=== PATIENT | male | born 1950 | race Caucasian/White ===

== ENCOUNTER 2022-09-06 10:02 | Outpatient (CLI) | payer MEDICAID ==
[~2022-09-06 10:02] MED LIST: ADV50250 INH; ALBUTEROL IH; CLOP75TA15 PO; LISI10TA27 PO; SPIIN IH
[2022-09-06 10:55] LABS: ALBUMIN 3.1 G/DL (3.4-5.0); ANION GAP 8 (8-16); BLOOD UREA NITROGEN 34 MG/DL (7-18); BUN/CREATININE RATIO 21.7 (5.4-32.0); CHLORIDE 105 MMOL/L (99-107); CREATININE 1.57 MG/DL (0.60-1.10); POTASSIUM 3.6 MMOL/L (3.5-5.1); SODIUM 139 MMOL/L (135-145); TOTAL CARBON DIOXIDE 25.9 MMOL/L (24-32); eGFR 44 ML/MIN
[2022-09-06 11:01] LABS: GLUCOSE 89 MG/DL (70-104)
== END 2022-09-06 23:59 | disposition home or self-care (01) ==
LOC: LAB 10:02
PROVIDERS: ATTEND Nurse Practitioner Family
DX: I65.23 Occlusion and stenosis of bilateral carotid arteries (principal); I10 Essential (primary) hypertension
CPT/HCPCS: 36415; 80048

== ENCOUNTER 2022-10-09 06:24 | Day surgery (SDC) | payer MEDICARE, MEDICAID ==
[2022-10-04 10:24] LABS: BASOPHILS % (AUTO) 0.7 % (0-1); EOSINOPHILS # (AUTO) 0.2 X10'3 (0-0.9); EOSINOPHILS % (AUTO) 3.6 % (0-6); HEMATOCRIT 40.1 % (42.0-52.0); HEMOGLOBIN 13.8 g/dl (14.0-17.9); LYMPHOCYTES # (AUTO) 1.9 X10'3 (1.1-4.8); LYMPHOCYTES % (AUTO) 31.2 % (21-51); MEAN CORPUSCULAR HGB CONC 34.4 g/dL (33.0-36.5); MEAN CORPUSCULAR VOLUME 95.9 FL (78-98); MEAN PLATELET VOLUME 7.7 FL (7.4-10.4); MONOCYTES # (AUTO) 0.7 X10'3 (0-0.9); MONOCYTES % (AUTO) 11.5 % (2-12); NEUTROPHILS # (AUTO) 3.2 X10'3 (1.8-7.7); PLATELET COUNT 168 X10'3 (140-440); RED BLOOD COUNT 4.19 X10'6 (4.70-6.10)
[2022-10-04 10:34] LABS: ANION GAP 6 (8-16); BLOOD UREA NITROGEN 39 MG/DL (7-18); CALCIUM 9.7 MG/DL (8.5-10.1); CHLORIDE 106 MMOL/L (99-107); CHOL/HDL RATIO 4.5 (0.00-4.99); CHOLESTEROL 135 MG/DL (0-200); CREATININE 1.95 MG/DL (0.60-1.10); HDL CHOLESTEROL 30 MG/DL (35-60); LDL CHOLESTEROL 86 MG/DL (50-100); SODIUM 140 MMOL/L (135-145); TOTAL CARBON DIOXIDE 28.4 MMOL/L (24-32); TRIGLYCERIDES 111 MG/DL (20-135); eGFR 34 ML/MIN
[2022-10-04 10:39] LABS: GLUCOSE 92 MG/DL (70-104)
[2022-10-04 11:13] LABS: APTT 28 SECONDS (22-32)
[~2022-10-09] VITALS: Ht 172.7 cm; Wt 61.5 kg
[2022-10-09] VITALS (9 sets, daily range): BP systolic 135–176; BP diastolic 65–91
[2022-10-09] MEDS ORDERED: normal saline 1,000 ML IV SCH (06:40)
[2022-10-09] MEDS ORDERED: LORazepam 0.5 MG tablet PO PRN (06:40)
[2022-10-09] MEDS ORDERED: diphenhydrAMINE 25mg capsule PO PRN (06:40)
[2022-10-09] MEDS ORDERED: ROSU20TA31 PO (07:16)
[2022-10-09] MEDS ORDERED: ASPI81TA52 PO (07:16)
[2022-10-09] MEDS ORDERED: HYDR25TA5 PO (07:16)
[2022-10-09] MEDS ORDERED: BUDE10.2 PO (07:16)
[2022-10-09] MEDS ORDERED: nitroGLYCERIN-Tridil 50MG/D5W 250 ML IV ONE (07:33)
[2022-10-09] MEDS ORDERED: midazolam 1 mg/ML 2ml injection ONE (07:34)
[2022-10-09] MEDS ORDERED: iohexol 350MG/ML 100ml bottle IV ONE ×3 (07:34→09:33)
[2022-10-09] MEDS ORDERED: fentaNYL/PF 50MCG/1 ML 2ML syringe ONE (07:34)
[2022-10-09] MEDS ORDERED: heparin 1,000unit/ml 10ml vial 10 ML ONE (07:34)
[2022-10-09] MEDS ORDERED: verapamil 2.5 mg/ml inj IV ONE (07:34)
[2022-10-09] MEDS ORDERED: LIDOcaine 1% (10mg/ml) 2ml vial ONE (07:34)
[2022-10-09] MEDS ORDERED: clopidogrel 300mg tablet ONE (08:59)
[2022-10-09] MEDS ORDERED: aspirin 325mg tablet ONE (08:59)
[2022-10-09] MEDS ORDERED: HYDROcodone/acetaminophen 10/325mg tab PO PRN (10:40)
[2022-10-09] MEDS ORDERED: HYDROcodone/acetaminophen 5mg/325mg tablet PO PRN (10:40)
== END 2022-10-09 12:45 | disposition home or self-care (01) ==
LOC: SSTAY O 06:24
PROVIDERS: ATTEND Student in an Organized Health Care Education/Training Program
DX: R07.89 Other chest pain (principal); I25.10 Atherosclerotic heart disease of native coronary artery without angina pectoris; I12.9 Hypertensive chronic kidney disease with stage 1 through stage 4 chronic kidney disease, or unspecified chronic kidney disease; N18.30 Chronic kidney disease, stage 3 unspecified; E78.5 Hyperlipidemia, unspecified; F15.90 Other stimulant use, unspecified, uncomplicated; J43.9 Emphysema, unspecified; I65.29 Occlusion and stenosis of unspecified carotid artery; K74.60 Unspecified cirrhosis of liver; B18.2 Chronic viral hepatitis C; Z79.899 Other long term (current) drug therapy; Z79.82 Long term (current) use of aspirin; Z87.891 Personal history of nicotine dependence
CPT/HCPCS: 36415; 80048; 80061; 85025; 85610; 85730; 93005; 93458; 99152; 99153; C1725; C1751; C1769; C1874; C1894; C9600; J1644; J2250; J3010; J3490; J7030; Q0163; Q9967; A6258; A6449; C1761

== ENCOUNTER → 2022-11-07 | Day surgery (SDC) | payer MEDICARE, MEDICAID ==
[~2022-11-07] VITALS: Ht 172.7 cm; Wt 60.4 kg
[~2022-11-07] MED LIST changes: -ADV50250 INH; -ALBUTEROL IH; +ASPI81TA52 PO; +BUDE10.2 PO; -CLOP75TA15 PO; +HYDR25TA5 PO; +ROSU20TA31 PO; +SODIUM BICARB 150mEq/D5W 1L 1,000 ML IV ONE; +iohexol 350MG/ML 100ml bottle IV ONE
[2022-11-07 09:15] VITALS: BP 122/60
[2022-11-07 10:02] LABS: ALANINE AMINOTRANSFERASE 96 U/L (12-78); ALBUMIN 2.8 G/DL (3.4-5.0); ALBUMIN/GLOBULIN RATIO 0.6 (1.1-1.5); ALKALINE PHOSPHATASE 69 IU/L (46-116); ASPARTATE AMINO TRANSFERASE 97 U/L (10-37); BILIRUBIN,TOTAL 1.1 MG/DL (0.1-1.0); CHOL/HDL RATIO 3.9 (0.00-4.99); CHOLESTEROL 106 MG/DL (0-200); HDL CHOLESTEROL 27 MG/DL (35-60); LDL CHOLESTEROL 65 MG/DL (50-100); TOTAL PROTEIN 7.7 G/DL (6.4-8.2); TRIGLYCERIDES 84 MG/DL (20-135)
[2022-11-07 10:07] LABS: BILIRUBIN,DIRECT 0.4 MG/DL (0-0.3)
[2022-11-07 10:40] LABS: ANION GAP 9 (8-16); CHLORIDE 110 MMOL/L (99-107); GLUCOSE 90 MG/DL (70-104); POTASSIUM 3.5 MMOL/L (3.5-5.1); SODIUM 143 MMOL/L (135-145); TOTAL CARBON DIOXIDE 23.7 MMOL/L (24-32)
[2022-11-07 10:41] LABS: BLOOD UREA NITROGEN 30 MG/DL (7-18); BUN/CREATININE RATIO 17.5 (5.4-32.0); CREATININE 1.71 MG/DL (0.60-1.10); eGFR 40 ML/MIN
== END | disposition home or self-care (01) ==
LOC: SSTAY O 08:38
PROVIDERS: ATTEND Internal Medicine Interventional Cardiology
DX: I65.23 Occlusion and stenosis of bilateral carotid arteries (principal); I10 Essential (primary) hypertension; E78.5 Hyperlipidemia, unspecified; F15.10 Other stimulant abuse, uncomplicated; B18.2 Chronic viral hepatitis C; J44.9 Chronic obstructive pulmonary disease, unspecified; Z87.891 Personal history of nicotine dependence; Z79.82 Long term (current) use of aspirin; Z79.899 Other long term (current) drug therapy
CPT/HCPCS: 36415; 70498; 80048; 80061; 80076; J3490; J7030; Q9967

== ENCOUNTER 2024-01-14 10:57 | Outpatient (CLI) | payer MEDICARE, MEDICAID ==
[~2024-01-14 10:57] MED LIST changes: +IODIXANOL 320 MG/ML INFUS..BTL 100ML IV ONE; -ROSU20TA31 PO; +ROSU20TA73 PO; -SODIUM BICARB 150mEq/D5W 1L 1,000 ML IV ONE; -iohexol 350MG/ML 100ml bottle IV ONE
[2024-01-14 11:30] LABS: BASOPHILS # (AUTO) 0.1 X10'3 (0-0.2); BASOPHILS % (AUTO) 1.1 % (0-1); EOSINOPHILS # (AUTO) 0.2 X10'3 (0-0.9); EOSINOPHILS % (AUTO) 2.1 % (0-6); HEMATOCRIT 28.7 % (42.0-52.0); HEMOGLOBIN 8.8 g/dl (14.0-17.9); LYMPHOCYTES # (AUTO) 1.1 X10'3 (1.1-4.8); MEAN CORPUSCULAR HEMOGLOBIN 23.2 PG (27.0-31.0); MEAN CORPUSCULAR HGB CONC 30.5 g/dL (33.0-36.5); MEAN CORPUSCULAR VOLUME 76.1 FL (78-98); MEAN PLATELET VOLUME 7.5 FL (7.4-10.4); NEUTROPHILS # (AUTO) 6.6 X10'3 (1.8-7.7); NEUTROPHILS % (AUTO) 73.8 % (42-75); PLATELET COUNT 279 X10'3 (140-440); RED BLOOD COUNT 3.77 X10'6 (4.70-6.10); RED CELL DISTRIBUTION WIDTH 19.8 % (11.5-14.5); WHITE BLOOD COUNT 8.9 X10'3 (4.5-11.0)
[2024-01-14 11:43] LABS: APTT 26 SECONDS (22-32); INR 1.1 INR; PROTHROMBIN TIME 11.8 SECONDS (9.0-12.0)
[2024-01-14 11:44] LABS: ANION GAP 12 (8-16); BLOOD UREA NITROGEN 16 MG/DL (7-18); BUN/CREATININE RATIO 13.9 (10.0-20.0); CHLORIDE 108 MMOL/L (99-107); CREATININE 1.15 MG/DL (0.60-1.10); GLUCOSE 94 MG/DL (70-104); POTASSIUM 3.6 MMOL/L (3.5-5.1); SODIUM 140 MMOL/L (135-145); TOTAL CARBON DIOXIDE 20.2 MMOL/L (24-32)
[2024-01-14 11:45] LABS: ALANINE AMINOTRANSFERASE 42 U/L (12-78); ALBUMIN 2.8 G/DL (3.4-5.0); ALBUMIN/GLOBULIN RATIO 0.6 (1.1-1.5); ALKALINE PHOSPHATASE 80 IU/L (46-116); ASPARTATE AMINO TRANSFERASE 70 U/L (10-37); CALCIUM 8.6 MG/DL (8.5-10.1); TOTAL PROTEIN 7.6 G/DL (6.4-8.2); eGFR 63 ML/MIN
[2024-01-14 11:52] LABS: PRO BRAIN NATRIURETIC PEPTIDE 1744 PG/ML (0-125)
[2024-01-14 12:06] LABS: ANISOCYTOSIS 2+; BURR CELLS 1+; MICROCYTOSIS 1+; PLATELET ESTIMATE NORMAL; ROULEAUX 1+
[2024-01-14 12:07] LABS: ELLIPTOCYTES FEW; HYPOCHROMASIA 1+; LARGE PLATELETS FEW; SCHISTOCYTES FEW
[2024-01-19] MEDS ORDERED: ATOR80TA PO (11:24)
[2024-01-19] MEDS ORDERED: ZOLP5TAB8 PO (11:25)
[2024-01-19] MEDS ORDERED: METO-395 PO (11:26)
[2024-01-19] MEDS ORDERED: LOSA-415 PO (11:26)
[2024-01-19] MEDS ORDERED: CLOP75TA34 PO (11:27)
[2024-01-19] MEDS ORDERED: TIOT4MIS2 PO (11:29)
[2024-01-19] MEDS ORDERED: ALB0.5UD IH (11:32)
== END 2024-01-14 23:59 | disposition home or self-care (01) ==
LOC: RAD 10:57
PROVIDERS: ATTEND Internal Medicine Cardiovascular Disease
DX: K80.20 Calculus of gallbladder without cholecystitis without obstruction (principal); J90 Pleural effusion, not elsewhere classified; I35.0 Nonrheumatic aortic (valve) stenosis; R06.02 Shortness of breath; I65.29 Occlusion and stenosis of unspecified carotid artery; K76.6 Portal hypertension; I85.00 Esophageal varices without bleeding; K74.60 Unspecified cirrhosis of liver; J43.8 Other emphysema
CPT/HCPCS: 36415; 71046; 71275; 74174; 75572; 80053; 83880; 85008; 85025; 85610; 85730; J3490; Q9967

== ENCOUNTER 2024-01-23 23:38 | Inpatient (IN) | payer MEDICARE, MEDICAID ==
[~2024-01-23] VITALS: Ht 172.7 cm; Wt 58.0 kg
[~2024-01-23 23:38] MED LIST changes: +ALB0.5UD IH; +ATOR80TA PO; +CLOP75TA34 PO; +FURO20TA4 PO; -HYDR25TA5 PO; -IODIXANOL 320 MG/ML INFUS..BTL 100ML IV ONE; -LISI10TA27 PO; +LOSA-415 PO; +METO-395 PO; +PANT40TA54 PO; +POTA-207 PO; -ROSU20TA73 PO; -SPIIN IH; +TIOT4MIS2 PO; +ZOLP5TAB8 PO
[2024-01-24 02:09] LABS: BASOPHILS % (AUTO) 0.7 % (0-1); EOSINOPHILS # (AUTO) 0.1 X10'3 (0-0.9); EOSINOPHILS % (AUTO) 1.3 % (0-6); HEMATOCRIT 25.4 % (42.0-52.0); HEMOGLOBIN 7.9 g/dl (14.0-17.9); LYMPHOCYTES # (AUTO) 0.8 X10'3 (1.1-4.8); LYMPHOCYTES % (AUTO) 11.4 % (21-51); MEAN CORPUSCULAR HEMOGLOBIN 22.5 PG (27.0-31.0); MEAN CORPUSCULAR HGB CONC 31.1 g/dL (33.0-36.5); MEAN CORPUSCULAR VOLUME 72.2 FL (78-98); MEAN PLATELET VOLUME 7.9 FL (7.4-10.4); NEUTROPHILS # (AUTO) 5.2 X10'3 (1.8-7.7); NEUTROPHILS % (AUTO) 72.6 % (42-75); PLATELET COUNT 257 X10'3 (140-440); RED BLOOD COUNT 3.52 X10'6 (4.70-6.10); RED CELL DISTRIBUTION WIDTH 19.9 % (11.5-14.5); WHITE BLOOD COUNT 7.2 X10'3 (4.5-11.0)
[2024-01-24 02:28] LABS: ALANINE AMINOTRANSFERASE 41 U/L (12-78); ALBUMIN 2.8 G/DL (3.4-5.0); ALBUMIN/GLOBULIN RATIO 0.6 (1.1-1.5); ALKALINE PHOSPHATASE 80 IU/L (46-116); ANION GAP 9 (8-16); ASPARTATE AMINO TRANSFERASE 46 U/L (10-37); BILIRUBIN,TOTAL 1.2 MG/DL (0.1-1.0); BLOOD UREA NITROGEN 29 MG/DL (7-18); BUN/CREATININE RATIO 20.3 (10.0-20.0); CALCIUM 8.6 MG/DL (8.5-10.1); CHLORIDE 108 MMOL/L (99-107); CREATININE 1.43 MG/DL (0.60-1.10); GLUCOSE 107 MG/DL (70-104); MAGNESIUM 1.9 MG/DL (1.5-2.4); POTASSIUM 3.7 MMOL/L (3.5-5.1); PRO BRAIN NATRIURETIC PEPTIDE 3269 PG/ML (0-125); SODIUM 139 MMOL/L (135-145); TOTAL CARBON DIOXIDE 22.4 MMOL/L (24-32); TOTAL PROTEIN 7.4 G/DL (6.4-8.2); eCRCL 36 ML/MIN; eGFR 49 ML/MIN
[2024-01-24] MEDS: aspirin 81mg tab.chew PO STA (02:42)
[2024-01-24] MEDS: nitroGLYCERIN 1gm ointment UD TP ONE (02:42)
[2024-01-24] MEDS ORDERED: magnesium hydroxide 30ml (MOM) UD suspension PO PRN (03:20)
[2024-01-24] MEDS ORDERED: mag hydrox/Alum hydrox/simeth 30ml oral suspension PO PRN (03:20)
[2024-01-24] MEDS ORDERED: magnesium 2GM in 50ml NS 50 ML IV PRN (03:20)
[2024-01-24] MEDS ORDERED: HYDROcodone/acetaminophen 5mg/325mg tablet PO PRN (03:20)
[2024-01-24] MEDS ORDERED: acetaminophen 325mg tablet PO PRN (03:20)
[2024-01-24] MEDS ORDERED: magnesium 4gm in 100ml NS 100 ML IV PRN (03:20)
[2024-01-24] MEDS ORDERED: ondansetron 4mg rapidly disintigrating tab PO PRN (03:20)
[2024-01-24] MEDS ORDERED: potassium Cl 20 mEq SR tablet PO PRN (03:20)
[2024-01-24] MEDS ORDERED: morphine 2 MG/ML inj. syringe IV PRN (03:20)
[2024-01-24] MEDS ORDERED: heparin 10,000 units/1 ML INJ IV PRN (03:20)
[2024-01-24] MEDS ORDERED: potassium Cl 40MEQ/1/2NS 520ml 520 ML IV PRN (03:20)
[2024-01-24] MEDS ORDERED: ondansetron/PF 4mg/2ml inj IV PRN (03:20)
[2024-01-24] MEDS ORDERED: magnesium Cl slow-release 64mg tablet PO PRN (03:20)
[2024-01-24 03:32] LABS: APTT 25 SECONDS (22-32); INR 1.2 INR
[2024-01-24 03:47] LABS: ANISOCYTOSIS 2+; ELLIPTOCYTES FEW; MICROCYTOSIS 1+; PLATELET ESTIMATE NORMAL; SCHISTOCYTES FEW
[2024-01-24 03:48] LABS: ACANTHOCYTES FEW; BURR CELLS 1+
[2024-01-24] MEDS: heparin 10,000 units/1 ML INJ IV ONE (04:38)
[2024-01-24] MEDS: MESSAGE TO NURSING IV ONE ×2 (04:39→09:37)
[2024-01-24] MEDS: heparin 25,000 UNIT/250ml bag 250 ML IV PRN (04:41)
[2024-01-24 05:01] LABS: PHOSPHORUS 3.2 MG/DL (2.3-4.5)
[2024-01-24] MEDS: K and/or MAG REPLACEMENT MC SCH (07:17)
[2024-01-24 08:08] LABS: INR 1.2 INR; PROTHROMBIN TIME 12.5 SECONDS (9.0-12.0)
[2024-01-24] MEDS: aspirin 81mg, enteric-coated 1 TAB TABLET.DR PO SCH (08:16)
[2024-01-24] MEDS: docusate sod 100mg capsule PO SCH (08:16)
[2024-01-24] MEDS: atorvastatin 20mg tablet PO SCH (08:16)
[2024-01-24 08:57] LABS: HIV ANTIBODY 1&2 RAPID NON-REACTIVE (Neg)
[2024-01-24] MEDS: ringers solution, lacted 1,000 ML IV ONE (10:39)
[2024-01-24 14:43] LABS: APTT 48 SECONDS (22-32)
[2024-01-24] MEDS ORDERED: FURO-150 PO (17:03)
[2024-01-24] MEDS ORDERED: POTA-208 PO (17:03)
[2024-01-24] MEDS: morphine 2 MG/ML inj. syringe IV PRN (20:24)
[2024-01-24 21:22] VITALS: BP 153/86; PULSE 97; RESP 23; TEMP 97.9; O2SAT 92
[2024-01-24] MEDS: HYDROcodone/acetaminophen 10/325mg tab PO PRN (21:58)
[2024-01-24] MEDS: zolpidem 5mg tablet PO PRN (23:09)
[2024-01-25] VITALS (11 sets, daily range): BP systolic 117–142; BP diastolic 54–68; PULSE 71–90; RESP 15–24; TEMP 97.6–98.8; O2SAT 90–97
[2024-01-25 06:55] LABS: BASOPHILS # (AUTO) 0.1 X10'3 (0-0.2); BASOPHILS % (AUTO) 1.1 % (0-1); EOSINOPHILS # (AUTO) 0.2 X10'3 (0-0.9); EOSINOPHILS % (AUTO) 4.1 % (0-6); HEMATOCRIT 23.9 % (42.0-52.0); HEMOGLOBIN 7.3 g/dl (14.0-17.9); LYMPHOCYTES % (AUTO) 21.5 % (21-51); MEAN CORPUSCULAR HEMOGLOBIN 22.2 PG (27.0-31.0); MEAN CORPUSCULAR HGB CONC 30.7 g/dL (33.0-36.5); MEAN CORPUSCULAR VOLUME 72.3 FL (78-98); MEAN PLATELET VOLUME 7.8 FL (7.4-10.4); MONOCYTES # (AUTO) 0.6 X10'3 (0-0.9); MONOCYTES % (AUTO) 13.7 % (2-12); NEUTROPHILS # (AUTO) 2.8 X10'3 (1.8-7.7); NEUTROPHILS % (AUTO) 59.6 % (42-75); PLATELET COUNT 191 X10'3 (140-440); RED BLOOD COUNT 3.31 X10'6 (4.70-6.10); WHITE BLOOD COUNT 4.7 X10'3 (4.5-11.0)
[2024-01-25 07:09] LABS: ALANINE AMINOTRANSFERASE 33 U/L (12-78); ALBUMIN 2.4 G/DL (3.4-5.0); ALBUMIN/GLOBULIN RATIO 0.6 (1.1-1.5); ALKALINE PHOSPHATASE 49 IU/L (46-116); ANION GAP 8 (8-16); ASPARTATE AMINO TRANSFERASE 36 U/L (10-37); BILIRUBIN,TOTAL 1.1 MG/DL (0.1-1.0); BLOOD UREA NITROGEN 24 MG/DL (7-18); BUN/CREATININE RATIO 20.9 (10.0-20.0); CALCIUM 8.4 MG/DL (8.5-10.1); CHLORIDE 110 MMOL/L (99-107); CHOL/HDL RATIO 3.7 (0.00-4.99); CHOLESTEROL 81 MG/DL (0-200); CREATININE 1.15 MG/DL (0.60-1.10); GLUCOSE 92 MG/DL (70-104); HDL CHOLESTEROL 22 MG/DL (35-60); LDL CHOLESTEROL 54 MG/DL (50-100); POTASSIUM 3.9 MMOL/L (3.5-5.1); SODIUM 141 MMOL/L (135-145); TOTAL CARBON DIOXIDE 23.5 MMOL/L (24-32); TOTAL PROTEIN 6.4 G/DL (6.4-8.2); TRIGLYCERIDES 70 MG/DL (20-135); eCRCL 41 ML/MIN; eGFR 63 ML/MIN
[2024-01-25 07:56] LABS: ANISOCYTOSIS 2+; ELLIPTOCYTES FEW; MICROCYTOSIS 1+; PLATELET ESTIMATE NORMAL; POIKILOCYTOSIS FEW
[2024-01-25] MEDS ORDERED: albuterol 2.5 MG/3 ML nebule NEB PRN (17:40)
[2024-01-25] MEDS: albuterol 2.5 MG/3 ML nebule NEB SCH (19:58)
[2024-01-25] MEDS: budesonide 0.5mg/2ml UD nebule IH SCH (19:59)
[2024-01-25] MEDS: pantoprazole 40mg Tablet.DR PO SCH (20:10)
[2024-01-25] MEDS: zolpidem 5mg tablet PO PRN (21:48)
[2024-01-26] VITALS (16 sets, daily range): BP systolic 117–138; BP diastolic 49–70; PULSE 61–90; RESP 15–24; TEMP 97.3–98.2; O2SAT 90–98
[2024-01-26 06:50] LABS: EOSINOPHILS # (AUTO) 0.1 X10'3 (0-0.9); EOSINOPHILS % (AUTO) 2.7 % (0-6); HEMATOCRIT 27.6 % (42.0-52.0); HEMOGLOBIN 8.8 g/dl (14.0-17.9); LYMPHOCYTES % (AUTO) 20.7 % (21-51); MEAN CORPUSCULAR HEMOGLOBIN 23.8 PG (27.0-31.0); MEAN CORPUSCULAR HGB CONC 31.9 g/dL (33.0-36.5); MEAN CORPUSCULAR VOLUME 74.6 FL (78-98); MONOCYTES # (AUTO) 0.7 X10'3 (0-0.9); MONOCYTES % (AUTO) 13.8 % (2-12); NEUTROPHILS % (AUTO) 61.8 % (42-75); PLATELET COUNT 211 X10'3 (140-440); RED CELL DISTRIBUTION WIDTH 21.7 % (11.5-14.5); WHITE BLOOD COUNT 4.9 X10'3 (4.5-11.0)
[2024-01-26 06:52] LABS: ALANINE AMINOTRANSFERASE 35 U/L (12-78); ALBUMIN 2.4 G/DL (3.4-5.0); ALBUMIN/GLOBULIN RATIO 0.6 (1.1-1.5); ALKALINE PHOSPHATASE 57 IU/L (46-116); ANION GAP 11 (8-16); ASPARTATE AMINO TRANSFERASE 37 U/L (10-37); BILIRUBIN,TOTAL 1.8 MG/DL (0.1-1.0); BLOOD UREA NITROGEN 21 MG/DL (7-18); BUN/CREATININE RATIO 17.5 (10.0-20.0); CALCIUM 7.9 MG/DL (8.5-10.1); CHLORIDE 106 MMOL/L (99-107); GLUCOSE 108 MG/DL (70-104); MAGNESIUM 1.8 MG/DL (1.5-2.4); PHOSPHORUS 2.8 MG/DL (2.3-4.5); POTASSIUM 3.4 MMOL/L (3.5-5.1); SODIUM 136 MMOL/L (135-145); TOTAL CARBON DIOXIDE 18.9 MMOL/L (24-32); TOTAL PROTEIN 6.6 G/DL (6.4-8.2); eCRCL 39 ML/MIN; eGFR 60 ML/MIN
[2024-01-26] MEDS: aspirin 81mg, enteric-coated 1 TAB TABLET.DR PO SCH (08:00)
[2024-01-26] MEDS ORDERED: non-formulary drug (Atorvastatin Calcium* (Lipitor*) 1 TAB) PO SCH (08:00)
[2024-01-26 08:46] LABS: ACANTHOCYTES FEW; ANISOCYTOSIS 3+; BURR CELLS FEW; ELLIPTOCYTES 1+; HYPOCHROMASIA 1+; LARGE PLATELETS FEW; MICROCYTOSIS 1+; PLATELET ESTIMATE NORMAL; TEAR DROP CELLS FEW
[2024-01-26 08:47] LABS: SCHISTOCYTES FEW
[2024-01-26] MEDS: potassium Cl 20 mEq SR tablet PO PRN (08:48)
[2024-01-26] MEDS: metoprolol succinate 25mg (24-HOUR) SR. Tablet PO SCH (08:49)
[2024-01-26] MEDS: losartan 25mg tablet PO SCH (08:50)
[2024-01-26] MEDS: lactose-reduced food (Ensure Enlive) - 237ml bottle PO SCH (18:00)
[2024-01-27] VITALS (14 sets, daily range): BP systolic 98–131; BP diastolic 51–81; PULSE 67–86; RESP 12–22; TEMP 96.8–98.1; O2SAT 92–97
[2024-01-27 06:35] LABS: BASOPHILS % (AUTO) 0.8 % (0-1); EOSINOPHILS # (AUTO) 0.1 X10'3 (0-0.9); EOSINOPHILS % (AUTO) 1.9 % (0-6); HEMOGLOBIN 8.4 g/dl (14.0-17.9); LYMPHOCYTES # (AUTO) 0.9 X10'3 (1.1-4.8); LYMPHOCYTES % (AUTO) 18.1 % (21-51); MEAN CORPUSCULAR HGB CONC 32.3 g/dL (33.0-36.5); MEAN CORPUSCULAR VOLUME 74.5 FL (78-98); MONOCYTES # (AUTO) 0.7 X10'3 (0-0.9); MONOCYTES % (AUTO) 13.8 % (2-12); NEUTROPHILS # (AUTO) 3.4 X10'3 (1.8-7.7); NEUTROPHILS % (AUTO) 65.4 % (42-75); PLATELET COUNT 188 X10'3 (140-440); RED BLOOD COUNT 3.49 X10'6 (4.70-6.10); RED CELL DISTRIBUTION WIDTH 21.7 % (11.5-14.5); WHITE BLOOD COUNT 5.2 X10'3 (4.5-11.0)
[2024-01-27 06:40] LABS: ALANINE AMINOTRANSFERASE 28 U/L (12-78); ALBUMIN 2.2 G/DL (3.4-5.0); ALBUMIN/GLOBULIN RATIO 0.6 (1.1-1.5); ALKALINE PHOSPHATASE 53 IU/L (46-116); ANION GAP 11 (8-16); ASPARTATE AMINO TRANSFERASE 25 U/L (10-37); BLOOD UREA NITROGEN 18 MG/DL (7-18); BUN/CREATININE RATIO 15.7 (10.0-20.0); CHLORIDE 107 MMOL/L (99-107); CREATININE 1.15 MG/DL (0.60-1.10); GLUCOSE 102 MG/DL (70-104); POTASSIUM 4.4 MMOL/L (3.5-5.1); SODIUM 137 MMOL/L (135-145); TOTAL CARBON DIOXIDE 18.8 MMOL/L (24-32); TOTAL PROTEIN 6.2 G/DL (6.4-8.2); eCRCL 47 ML/MIN; eGFR 63 ML/MIN
[2024-01-28] VITALS (12 sets, daily range): BP systolic 105–135; BP diastolic 48–78; PULSE 67–80; RESP 13–22; TEMP 97.1–98.4; O2SAT 94–99
[2024-01-28 07:08] LABS: BASOPHILS % (AUTO) 0.8 % (0-1); EOSINOPHILS # (AUTO) 0.2 X10'3 (0-0.9); EOSINOPHILS % (AUTO) 2.9 % (0-6); HEMATOCRIT 29.2 % (42.0-52.0); HEMOGLOBIN 9.3 g/dl (14.0-17.9); LYMPHOCYTES # (AUTO) 1.2 X10'3 (1.1-4.8); LYMPHOCYTES % (AUTO) 18.6 % (21-51); MEAN CORPUSCULAR HEMOGLOBIN 23.7 PG (27.0-31.0); MEAN CORPUSCULAR HGB CONC 31.7 g/dL (33.0-36.5); MEAN CORPUSCULAR VOLUME 74.6 FL (78-98); MEAN PLATELET VOLUME 7.9 FL (7.4-10.4); MONOCYTES # (AUTO) 0.9 X10'3 (0-0.9); MONOCYTES % (AUTO) 13.7 % (2-12); NEUTROPHILS # (AUTO) 4.1 X10'3 (1.8-7.7); PLATELET COUNT 226 X10'3 (140-440); RED BLOOD COUNT 3.91 X10'6 (4.70-6.10); WHITE BLOOD COUNT 6.4 X10'3 (4.5-11.0)
[2024-01-28 07:15] LABS: ALANINE AMINOTRANSFERASE 25 U/L (12-78); ALBUMIN 2.4 G/DL (3.4-5.0); ALBUMIN/GLOBULIN RATIO 0.6 (1.1-1.5); ALKALINE PHOSPHATASE 54 IU/L (46-116); ANION GAP 5 (8-16); ASPARTATE AMINO TRANSFERASE 34 U/L (10-37); BILIRUBIN,TOTAL 1.2 MG/DL (0.1-1.0); BLOOD UREA NITROGEN 16 MG/DL (7-18); BUN/CREATININE RATIO 14.2 (10.0-20.0); CALCIUM 8.2 MG/DL (8.5-10.1); CHLORIDE 109 MMOL/L (99-107); CREATININE 1.13 MG/DL (0.60-1.10); GLUCOSE 101 MG/DL (70-104); MAGNESIUM 1.8 MG/DL (1.5-2.4); PHOSPHORUS 3.4 MG/DL (2.3-4.5); POTASSIUM 4.3 MMOL/L (3.5-5.1); SODIUM 137 MMOL/L (135-145); TOTAL PROTEIN 6.7 G/DL (6.4-8.2); eCRCL 48 ML/MIN; eGFR 64 ML/MIN
[2024-01-29] VITALS (12 sets, daily range): BP systolic 103–135; BP diastolic 50–62; PULSE 72–87; RESP 14–23; TEMP 98.1–100.3; O2SAT 88–99
[2024-01-29 06:48] LABS: MEAN CORPUSCULAR HEMOGLOBIN 23.7 PG (27.0-31.0); RED CELL DISTRIBUTION WIDTH 22.9 % (11.5-14.5)
[2024-01-29 06:51] LABS: BASOPHILS % (AUTO) 0.5 % (0-1); EOSINOPHILS # (AUTO) 0.1 X10'3 (0-0.9); HEMATOCRIT 27.4 % (42.0-52.0); HEMOGLOBIN 8.7 g/dl (14.0-17.9); LYMPHOCYTES # (AUTO) 0.7 X10'3 (1.1-4.8); LYMPHOCYTES % (AUTO) 10.9 % (21-51); MEAN CORPUSCULAR HGB CONC 31.8 g/dL (33.0-36.5); MEAN CORPUSCULAR VOLUME 74.6 FL (78-98); MEAN PLATELET VOLUME 7.8 FL (7.4-10.4); MONOCYTES # (AUTO) 0.7 X10'3 (0-0.9); MONOCYTES % (AUTO) 10.2 % (2-12); NEUTROPHILS # (AUTO) 5.2 X10'3 (1.8-7.7); NEUTROPHILS % (AUTO) 76.4 % (42-75); PLATELET COUNT 210 X10'3 (140-440); RED BLOOD COUNT 3.68 X10'6 (4.70-6.10); WHITE BLOOD COUNT 6.9 X10'3 (4.5-11.0)
[2024-01-29 06:53] LABS: ALANINE AMINOTRANSFERASE 25 U/L (12-78); ALBUMIN 2.2 G/DL (3.4-5.0); ALBUMIN/GLOBULIN RATIO 0.6 (1.1-1.5); ALKALINE PHOSPHATASE 54 IU/L (46-116); ANION GAP 6 (8-16); ASPARTATE AMINO TRANSFERASE 27 U/L (10-37); BILIRUBIN,TOTAL 0.9 MG/DL (0.1-1.0); BLOOD UREA NITROGEN 19 MG/DL (7-18); BUN/CREATININE RATIO 18.4 (10.0-20.0); CALCIUM 8.1 MG/DL (8.5-10.1); CHLORIDE 108 MMOL/L (99-107); CREATININE 1.03 MG/DL (0.60-1.10); GLUCOSE 96 MG/DL (70-104); MAGNESIUM 1.8 MG/DL (1.5-2.4); PHOSPHORUS 3.5 MG/DL (2.3-4.5); POTASSIUM 4.4 MMOL/L (3.5-5.1); SODIUM 136 MMOL/L (135-145); TOTAL CARBON DIOXIDE 22.4 MMOL/L (24-32); TOTAL PROTEIN 6.1 G/DL (6.4-8.2); eCRCL 53 ML/MIN; eGFR 71 ML/MIN
[2024-01-29] MEDS: furosemide 20 MG/2 ML vial IV SCH (10:37)
[2024-01-29] MEDS: acetaminophen 325mg tablet PO PRN (17:49)
[2024-01-29] MEDS: ferrous sulfate ER tablet 140 MG TABLET.ER PO SCH (19:30)
[2024-01-30 02:00] VITALS: BP 114/52; PULSE 77; RESP 15; TEMP 98.5; O2SAT 92
[2024-01-30] MEDS ORDERED: FURO40TA4 PO (06:37)
[2024-01-30 08:00] VITALS: RESP 18; O2SAT 99
[2024-01-30 08:25] VITALS: BP_SYST 107
[2024-01-30] MEDS ORDERED: FERROUS SULFATE 142 MG TABLET.ER (45mg elemental) PO SCH (09:47)
[2024-01-30 10:52] VITALS: PULSE 73; RESP 14; O2SAT 90
[2024-01-30 11:02] VITALS: PULSE 77; RESP 14
[2024-01-30] MEDS ORDERED: FERR-119 PO (11:39)
== END 2024-01-30 11:50 | disposition home or self-care (01) | DRG 280 ==
LOC: ER 23:39 → ED HOLD 01-24 03:21 → EDBEDREQ 01-24 20:36 → PCU 3S 01-24 21:22
PROVIDERS: ADMIT Internal Medicine Pulmonary Disease; ATTEND Family Medicine
PROC: 30233N1 Transfusion of Nonautologous Red Blood Cells into Peripheral Vein, Percutaneous Approach (ICD-10-PCS; principal; 2024-01-25)
DX: I11.0 Hypertensive heart disease with heart failure (principal); E43 Unspecified severe protein-calorie malnutrition; I21.A1 Myocardial infarction type 2; I50.33 Acute on chronic diastolic (congestive) heart failure; N17.9 Acute kidney failure, unspecified; Z68.1 Body mass index [BMI] 19.9 or less, adult; E87.20 Acidosis, unspecified; D64.9 Anemia, unspecified; K70.30 Alcoholic cirrhosis of liver without ascites; I35.0 Nonrheumatic aortic (valve) stenosis; I25.10 Atherosclerotic heart disease of native coronary artery without angina pectoris; I73.9 Peripheral vascular disease, unspecified; F10.10 Alcohol abuse, uncomplicated; J43.9 Emphysema, unspecified; K72.10 Chronic hepatic failure without coma; E87.6 Hypokalemia; I27.29 Other secondary pulmonary hypertension; E78.5 Hyperlipidemia, unspecified; E86.1 Hypovolemia; I95.9 Hypotension, unspecified; I27.81 Cor pulmonale (chronic); Z79.82 Long term (current) use of aspirin; I25.2 Old myocardial infarction; Z79.899 Other long term (current) drug therapy; Z87.891 Personal history of nicotine dependence; Z95.5 Presence of coronary angioplasty implant and graft
CPT/HCPCS: 36415; 36430; 71045; 80053; 80061; 83735; 83880; 84100; 84484; 85008; 85025; 85610; 85730; 86703; 86885; 86900; 86901; 86922; 87081; 93005; 94640; 94760; 97110; 97161; 97530; 99291; A4615; G0378; J1644; J1940; J2270; J7040; J7120; P9016

== ENCOUNTER 2024-02-14 07:54 | Inpatient (IN) | payer MEDICARE, MEDICAID ==
[2024-02-04 11:28] LABS: BASOPHILS # (AUTO) 0.1 X10'3 (0-0.2); BASOPHILS % (AUTO) 0.9 % (0-1); EOSINOPHILS # (AUTO) 0.1 X10'3 (0-0.9); EOSINOPHILS % (AUTO) 1.8 % (0-6); HEMATOCRIT 32.2 % (42.0-52.0); LYMPHOCYTES % (AUTO) 14.3 % (21-51); MEAN CORPUSCULAR HEMOGLOBIN 23.6 PG (27.0-31.0); MEAN CORPUSCULAR HGB CONC 31.2 g/dL (33.0-36.5); MEAN CORPUSCULAR VOLUME 75.8 FL (78-98); MEAN PLATELET VOLUME 7.6 FL (7.4-10.4); MONOCYTES # (AUTO) 0.9 X10'3 (0-0.9); MONOCYTES % (AUTO) 12.4 % (2-12); NEUTROPHILS # (AUTO) 5.1 X10'3 (1.8-7.7); NEUTROPHILS % (AUTO) 70.6 % (42-75); PLATELET COUNT 240 X10'3 (140-440); RED BLOOD COUNT 4.25 X10'6 (4.70-6.10); RED CELL DISTRIBUTION WIDTH 24.7 % (11.5-14.5); WHITE BLOOD COUNT 7.2 X10'3 (4.5-11.0)
[2024-02-04 11:42] LABS: ANISOCYTOSIS 3+; BURR CELLS FEW; ELLIPTOCYTES FEW; MICROCYTOSIS 1+; PLATELET ESTIMATE NORMAL; SCHISTOCYTES FEW; TEAR DROP CELLS FEW
[2024-02-04 11:43] LABS: HYPOCHROMASIA 1+
[2024-02-04 11:46] LABS: ALANINE AMINOTRANSFERASE 27 U/L (12-78); ALBUMIN 2.8 G/DL (3.4-5.0); ALBUMIN/GLOBULIN RATIO 0.6 (1.1-1.5); ALKALINE PHOSPHATASE 59 IU/L (46-116); ANION GAP 9 (8-16); ASPARTATE AMINO TRANSFERASE 34 U/L (10-37); BILIRUBIN,TOTAL 0.9 MG/DL (0.1-1.0); BLOOD UREA NITROGEN 18 MG/DL (7-18); BUN/CREATININE RATIO 15.8 (10.0-20.0); CALCIUM 8.2 MG/DL (8.5-10.1); CHLORIDE 105 MMOL/L (99-107); CREATININE 1.14 MG/DL (0.60-1.10); GLUCOSE 97 MG/DL (70-104); POTASSIUM 3.2 MMOL/L (3.5-5.1); SODIUM 138 MMOL/L (135-145); TOTAL CARBON DIOXIDE 23.7 MMOL/L (24-32); TOTAL PROTEIN 7.6 G/DL (6.4-8.2); eGFR 63 ML/MIN
[2024-02-12 15:27] LABS: BILIRUBIN,URINE NEGATIVE (Neg); CLARITY,URINE CLEAR (Clear); COLOR,URINE STRAW (Yellow); GLUCOSE, URINE NEGATIVE (Neg); KETONES,URINE NEGATIVE (Neg); LEUKOCYTE ESTERASE ,URINE NEGATIVE (Neg); NITRITES, URINE NEGATIVE (Neg); OCCULT BLOOD,URINE NEGATIVE (Neg); PROTEIN,URINE NEGATIVE (Neg); UROBILINOGEN,URINE 0.2 E.U/dL (0.2-1.0)
[2024-02-12 15:28] LABS: UA COLLECTION TYPE CLN CATCH MIDSTREAM
[2024-02-12 15:39] LABS: BASOPHILS # (AUTO) 0.1 X10'3 (0-0.2); BASOPHILS % (AUTO) 0.8 % (0-1); EOSINOPHILS # (AUTO) 0.1 X10'3 (0-0.9); EOSINOPHILS % (AUTO) 1.5 % (0-6); LYMPHOCYTES # (AUTO) 1.2 X10'3 (1.1-4.8); LYMPHOCYTES % (AUTO) 13.7 % (21-51); MEAN CORPUSCULAR HEMOGLOBIN 23.7 PG (27.0-31.0); MEAN CORPUSCULAR HGB CONC 30.5 g/dL (33.0-36.5); MEAN CORPUSCULAR VOLUME 77.8 FL (78-98); MEAN PLATELET VOLUME 7.5 FL (7.4-10.4); MONOCYTES # (AUTO) 1.2 X10'3 (0-0.9); MONOCYTES % (AUTO) 13.3 % (2-12); NEUTROPHILS # (AUTO) 6.3 X10'3 (1.8-7.7); NEUTROPHILS % (AUTO) 70.7 % (42-75); PRE OP HEMATOCRIT 34.7 % (42.0-52.0); PRE OP INR 1.1 INR; PRE OP PLATELET COUNT 315 X10'3 (140-440); PRE OP PROTIME 11.9 SECONDS (9.0-12.0); PRE OP WHITE BLOOD COUNT 8.9 10'3 (4.8-10.8); RED BLOOD COUNT 4.46 X10'6 (4.70-6.10)
[2024-02-12 15:41] LABS: PRE OP HEMOGLOBIN 10.6 g/dL (14.0-17.9)
[2024-02-12 15:48] LABS: ALBUMIN 2.9 G/DL (3.4-5.0); ALBUMIN/GLOBULIN RATIO 0.6 (1.1-1.5); ALKALINE PHOSPHATASE 68 IU/L (46-116); BLOOD UREA NITROGEN 28 MG/DL (7-18); BUN/CREATININE RATIO 24.8 (10.0-20.0); CALCIUM 8.7 MG/DL (8.5-10.1); CHLORIDE 106 MMOL/L (99-107); CREATININE 1.13 MG/DL (0.60-1.10); PRE OP ALT 24 U/L (30-65); PRE OP ANION GAP 13 (8-16); PRE OP AST 34 U/L (10-37); PRE OP BILIRUB, TOTAL 0.9 MG/DL (0.0-1.0); PRE OP GLUCOSE 81 MG/DL (70-104); PRE OP POTASSIUM 3.9 MMOL/L (3.4-5.1); PRE OP SODIUM 139 MMOL/L (135-145); PRO BRAIN NATRIURETIC PEPTIDE 2655 PG/ML (0-125); TOTAL PROTEIN 8.1 G/DL (6.4-8.2); eGFR 64 ML/MIN
[2024-02-12 17:52] LABS: ANISOCYTOSIS 3+; ELLIPTOCYTES FEW; MICROCYTOSIS 1+; PLATELET ESTIMATE NORMAL
[2024-02-12 17:53] LABS: POLYCHROMASIA FEW
[2024-02-12 17:54] LABS: BURR CELLS 1+
[~2024-02-14] VITALS: Ht 172.7 cm; Wt 55.8 kg
[2024-02-14] VITALS (32 sets, daily range): BP systolic 125–171; BP diastolic 56–81; PULSE 65–96; RESP 12–21; TEMP 97.7–98.2; O2SAT 90–99
[~2024-02-14 07:54] MED LIST changes: -CLOP75TA34 PO; +FURO-149 PO; -FURO20TA4 PO; +IRON PO; -PANT40TA54 PO; +nitroPRUSSIDE (NIPRIDE) (200MCG/ML) 100ML Drip IV SCH; +ondansetron/PF 4mg/2ml inj IV PRN; +phenylephrine inj 50 MG in normal saline 250ml IV solN IV SCH
[2024-02-14] MEDS: ipratropium/albuterol 3ml nebule NEB ONE (08:42)
[2024-02-14] MEDS: aspirin 325mg tablet PO ONE (09:17)
[2024-02-14] MEDS: famotidine 20mg tablet PO ONE (09:17)
[2024-02-14] MEDS: ringers solution, lacted 1,000 ML IV SCH (09:19)
[2024-02-14] MEDS: cefazolin 2gm/D5W 100mL 100 ML IV ONE (09:19)
[2024-02-14] MEDS: vancomycin/NS 1 GM in NS 250 ML IV ONE (09:19)
[2024-02-14] MEDS ORDERED: LIDOcaine 1% (10mg/ml) 2ml vial ONE (09:45)
[2024-02-14] MEDS ORDERED: albuterol 2.5 MG/3 ML nebule NEB PRN (09:55)
[2024-02-14] MEDS ORDERED: iohexol 350MG/ML 100ml bottle IV ONE (09:56)
[2024-02-14] MEDS ORDERED: heparin 1,000 UNITS/NS 500ml 1,500 ML ONE (09:56)
[2024-02-14] MEDS ORDERED: LIDOcaine 1% 30ml preserv. free vial ONE (10:11)
[2024-02-14] MEDS ORDERED: midazolam 1 mg/ML 2ml injection ONE (10:18)
[2024-02-14] MEDS ORDERED: fentaNYL/PF 50MCG/1 ML 2ML syringe ONE (10:18)
[2024-02-14] MEDS: protamine sulfate 10mg/ml inj. ONE (10:26)
[2024-02-14] MEDS ORDERED: heparin 1,000unit/ml 10ml vial 10 ML ONE (10:28)
[2024-02-14] MEDS ORDERED: MIDAZolam 1 MG/ML 5ML VIAL ONE (10:32)
[2024-02-14] MEDS ORDERED: potassium Cl 40MEQ/270ML bag 250 ML IV PRN (11:10)
[2024-02-14] MEDS ORDERED: magnesium 4gm in 100ml NS 100 ML IV PRN (11:10)
[2024-02-14] MEDS ORDERED: diphenhydrAMINE 25mg capsule PO PRN (11:10)
[2024-02-14] MEDS ORDERED: acetaminophen 325mg tablet PO PRN (11:10)
[2024-02-14] MEDS ORDERED: ALPRAZolam 0.25mg tablet PO PRN (11:10)
[2024-02-14] MEDS ORDERED: docusate sod 100mg capsule PO PRN (11:10)
[2024-02-14] MEDS ORDERED: potassium Cl 20 mEq SR tablet PO PRN (11:10)
[2024-02-14] MEDS ORDERED: ondansetron/PF 4mg/2ml inj IV PRN (11:10)
[2024-02-14] MEDS ORDERED: pantoprazole 40mg Tablet.DR PO PRN (11:10)
[2024-02-14] MEDS ORDERED: magnesium 2GM in 50ml NS 50 ML IV PRN (11:10)
[2024-02-14] MEDS ORDERED: proCHLORperazine 10 MG/2 ml inj IV PRN (11:10)
[2024-02-14] MEDS ORDERED: potassium Cl 20mEq/100mL bag 100 ML IV PRN (11:10)
[2024-02-14] MEDS ORDERED: potassium Cl 40MEQ/1/2NS 520ml 520 ML IV PRN (11:10)
[2024-02-14] MEDS ORDERED: potassium CL 10mEq/100ml bag 100 ML IV PRN (11:10)
[2024-02-14] MEDS: labetalol 20mg/4ml (5mg/ml) syringe IV PRN (11:44)
[2024-02-14] MEDS: normal saline 1000ml 1,000 ML IV SCH (11:47)
[2024-02-14] MEDS: ipratropium/albuterol 3ml nebule IH SCH (16:37)
[2024-02-14] MEDS: ceFAZolin 1GM/D5W- ADD-VANTAGE 50 ML IV SCH (16:45)
[2024-02-14] MEDS: sod chloride 0.9% 10ml flush syringe IV SCH (16:46)
[2024-02-14] MEDS: HYDROcodone/acetaminophen 5mg/325mg tablet PO PRN (18:14)
[2024-02-14] MEDS: hydrALAZINE 20mg/ml inj. IV PRN (19:43)
[2024-02-14] MEDS: vancomycin/NS 1 GM ADD-VANTAGE 250 ML IV SCH (20:00)
[2024-02-14] MEDS: budesonide 0.5mg/2ml UD nebule IH SCH (20:38)
[2024-02-14] MEDS: zolpidem 5mg tablet PO SCH (21:39)
[2024-02-15] MEDS: hydrALAZINE 20mg/ml inj. IV ONE (01:18)
[2024-02-15] MEDS: DOCUMENT DATE & TIME OF BETA-BLOCKER PO ONE (01:57)
[2024-02-15 01:58] VITALS: BP 157/71; PULSE 75; RESP 22; TEMP 97.7; O2SAT 91
[2024-02-15 05:57] LABS: BASOPHILS % (AUTO) 0.8 % (0-1); EOSINOPHILS # (AUTO) 0.2 X10'3 (0-0.9); EOSINOPHILS % (AUTO) 2.8 % (0-6); HEMATOCRIT 31.5 % (42.0-52.0); HEMOGLOBIN 10.1 g/dl (14.0-17.9); LYMPHOCYTES # (AUTO) 0.9 X10'3 (1.1-4.8); LYMPHOCYTES % (AUTO) 15.6 % (21-51); MEAN CORPUSCULAR HEMOGLOBIN 24.2 PG (27.0-31.0); MEAN CORPUSCULAR HGB CONC 32.1 g/dL (33.0-36.5); MEAN CORPUSCULAR VOLUME 75.3 FL (78-98); MEAN PLATELET VOLUME 7.5 FL (7.4-10.4); MONOCYTES # (AUTO) 0.8 X10'3 (0-0.9); MONOCYTES % (AUTO) 13.4 % (2-12); NEUTROPHILS % (AUTO) 67.4 % (42-75); PLATELET COUNT 228 X10'3 (140-440); RED BLOOD COUNT 4.18 X10'6 (4.70-6.10); RED CELL DISTRIBUTION WIDTH 25.7 % (11.5-14.5)
[2024-02-15 06:00] VITALS: BP 125/50; PULSE 67; RESP 16; TEMP 97.9; O2SAT 96
[2024-02-15 06:29] LABS: ALANINE AMINOTRANSFERASE 26 U/L (12-78); ALBUMIN 2.4 G/DL (3.4-5.0); ALBUMIN/GLOBULIN RATIO 0.5 (1.1-1.5); ALKALINE PHOSPHATASE 51 IU/L (46-116); ANION GAP 11 (8-16); ASPARTATE AMINO TRANSFERASE 53 U/L (10-37); BLOOD UREA NITROGEN 19 MG/DL (7-18); BUN/CREATININE RATIO 20.2 (10.0-20.0); CALCIUM 8.1 MG/DL (8.5-10.1); CHLORIDE 109 MMOL/L (99-107); CREATININE 0.94 MG/DL (0.60-1.10); GLUCOSE 87 MG/DL (70-104); MAGNESIUM 1.8 MG/DL (1.5-2.4); POTASSIUM 3.8 MMOL/L (3.5-5.1); PRO BRAIN NATRIURETIC PEPTIDE 2084 PG/ML (0-125); SODIUM 139 MMOL/L (135-145); TOTAL CARBON DIOXIDE 19.3 MMOL/L (24-32); TOTAL PROTEIN 6.9 G/DL (6.4-8.2); eCRCL 56 ML/MIN; eGFR 79 ML/MIN
[2024-02-15 06:41] LABS: ANISOCYTOSIS 3+; ELLIPTOCYTES 1+; MICROCYTOSIS 1+; PLATELET ESTIMATE NORMAL; SCHISTOCYTES 1+
[2024-02-15] MEDS: metoprolol succinate 25mg (24-HOUR) SR. Tablet PO SCH (07:37)
[2024-02-15] MEDS: atorvastatin 20mg tablet PO SCH (07:37)
[2024-02-15] MEDS: losartan 25mg tablet PO SCH (07:38)
[2024-02-15] MEDS: furosemide 40mg tablet PO SCH (07:38)
[2024-02-15 08:00] VITALS: RESP 16; O2SAT 98
[2024-02-15] MEDS ORDERED: aspirin 81mg, enteric-coated 1 TAB TABLET.DR PO SCH (08:00)
[2024-02-15] MEDS ORDERED: aspirin 81mg tab.chew PO SCH (08:30)
[2024-02-15 09:49] VITALS: PULSE 63; RESP 16; O2SAT 94
[2024-02-15 09:55] VITALS: PULSE 64; RESP 18
[2024-02-15 11:00] VITALS: BP 144/80; PULSE 64; RESP 18; TEMP 98; O2SAT 96
== END 2024-02-15 11:36 | disposition home or self-care (01) | DRG 266 ==
LOC: PAS IN 07:54 → EDSTATUS 10:00 → PCU 3S 13:45
PROVIDERS: ADMIT Student in an Organized Health Care Education/Training Program; ATTEND Student in an Organized Health Care Education/Training Program
PROC: 03HY32Z Insertion of Monitoring Device into Upper Artery, Percutaneous Approach (ICD-10-PCS; 2024-02-14)
PROC: B41D1ZZ Fluoroscopy of Aorta and Bilateral Lower Extremity Arteries using Low Osmolar Contrast (ICD-10-PCS; 2024-02-14)
PROC: 02RF38Z Replacement of Aortic Valve with Zooplastic Tissue, Percutaneous Approach (ICD-10-PCS; principal; 2024-02-14 10:10)
DX: I35.0 Nonrheumatic aortic (valve) stenosis (principal); Z00.6 Encounter for examination for normal comparison and control in clinical research program; I50.33 Acute on chronic diastolic (congestive) heart failure; I11.0 Hypertensive heart disease with heart failure; E78.5 Hyperlipidemia, unspecified; K74.60 Unspecified cirrhosis of liver; J44.9 Chronic obstructive pulmonary disease, unspecified; I27.20 Pulmonary hypertension, unspecified
CPT/HCPCS: 33361; 36415; 71045; 76937; 80053; 81003; 82948; 83735; 83880; 85008; 85025; 85347; 85610; 85730; 86885; 86900; 86901; 86920; 86922; 87081; 93005; 93308; 94640; 94760; A4618; A6258; A6449; C1756; C1760; C1769; C1894; G0378; J0360; J0690; J1644; J2250; J2371; J2720; J3010; J3370; J3490; J7030; J7040; J7050; J7120; Q9967

== ENCOUNTER 2024-12-11 08:56 | Outpatient (CLI) | payer MEDICARE, MEDICAID ==
[~2024-12-11 08:56] MED LIST changes: +ATOR-429 PO; -ATOR80TA PO; +iohexol 300mg/ml 100ml inj. ONE; -nitroPRUSSIDE (NIPRIDE) (200MCG/ML) 100ML Drip IV SCH; -ondansetron/PF 4mg/2ml inj IV PRN; -phenylephrine inj 50 MG in normal saline 250ml IV solN IV SCH
[2024-12-11 09:33] LABS: ALANINE AMINOTRANSFERASE 31 U/L (12-78); ALBUMIN 3.2 G/DL (3.4-5.0); ALBUMIN/GLOBULIN RATIO 0.8 (1.1-1.5); ALKALINE PHOSPHATASE 96 IU/L (46-116); ANION GAP 7 (8-16); ASPARTATE AMINO TRANSFERASE 28 U/L (10-37); BILIRUBIN,TOTAL 1.2 MG/DL (0.1-1.0); BLOOD UREA NITROGEN 13 MG/DL (7-18); BUN/CREATININE RATIO 12.6 (10.0-20.0); CALCIUM 8.5 MG/DL (8.5-10.1); CHLORIDE 110 MMOL/L (99-107); CREATININE 1.03 MG/DL (0.60-1.10); GLUCOSE 91 MG/DL (70-104); POTASSIUM 3.6 MMOL/L (3.5-5.1); SODIUM 142 MMOL/L (135-145); TOTAL CARBON DIOXIDE 25.3 MMOL/L (24-32); TOTAL PROTEIN 7.1 G/DL (6.4-8.2); eGFR 71 ML/MIN
== END 2024-12-11 23:59 | disposition home or self-care (01) ==
LOC: RAD 08:56
PROVIDERS: ATTEND Nurse Practitioner
DX: J43.9 Emphysema, unspecified (principal); I51.7 Cardiomegaly; I25.10 Atherosclerotic heart disease of native coronary artery without angina pectoris; I70.0 Atherosclerosis of aorta; K44.9 Diaphragmatic hernia without obstruction or gangrene; K80.20 Calculus of gallbladder without cholecystitis without obstruction; K74.60 Unspecified cirrhosis of liver
CPT/HCPCS: 36415; 71270; 80053; Q9967

== ENCOUNTER 2024-12-14 14:24 | Emergency (ER) | payer MEDICARE, MEDICAID ==
[~2024-12-14] VITALS: Ht 172.7 cm; Wt 60.9 kg
[~2024-12-14 14:24] MED LIST changes: -iohexol 300mg/ml 100ml inj. ONE
[2024-12-14 14:31] VITALS: TEMP 99.3
[2024-12-14 15:09] LABS: BASOPHILS # (AUTO) 0.1 X10'3 (0-0.2); BASOPHILS % (AUTO) 0.7 % (0-1); EOSINOPHILS # (AUTO) 0.1 X10'3 (0-0.9); EOSINOPHILS % (AUTO) 1.1 % (0-6); HEMATOCRIT 39.7 % (42.0-52.0); HEMOGLOBIN 13.5 g/dl (14.0-17.9); LYMPHOCYTES # (AUTO) 0.9 X10'3 (1.1-4.8); LYMPHOCYTES % (AUTO) 12.4 % (21-51); MEAN CORPUSCULAR HEMOGLOBIN 32.8 PG (27.0-31.0); MEAN CORPUSCULAR VOLUME 96.5 FL (78-98); MEAN PLATELET VOLUME 7.7 FL (7.4-10.4); MONOCYTES # (AUTO) 0.6 X10'3 (0-0.9); MONOCYTES % (AUTO) 8.6 % (2-12); NEUTROPHILS # (AUTO) 5.9 X10'3 (1.8-7.7); NEUTROPHILS % (AUTO) 77.2 % (42-75); PLATELET COUNT 222 X10'3 (140-440); RED BLOOD COUNT 4.12 X10'6 (4.70-6.10); RED CELL DISTRIBUTION WIDTH 15.1 % (11.5-14.5); WHITE BLOOD COUNT 7.6 X10'3 (4.5-11.0)
[2024-12-14 15:33] LABS: ALANINE AMINOTRANSFERASE 27 U/L (12-78); ALBUMIN 3.2 G/DL (3.4-5.0); ALBUMIN/GLOBULIN RATIO 0.8 (1.1-1.5); ALKALINE PHOSPHATASE 88 IU/L (46-116); ANION GAP 10 (8-16); ASPARTATE AMINO TRANSFERASE 29 U/L (10-37); BILIRUBIN,TOTAL 1.1 MG/DL (0.1-1.0); BLOOD UREA NITROGEN 19 MG/DL (7-18); BUN/CREATININE RATIO 19.4 (10.0-20.0); CALCIUM 8.6 MG/DL (8.5-10.1); CHLORIDE 110 MMOL/L (99-107); CREATININE 0.98 MG/DL (0.60-1.10); GLUCOSE 111 MG/DL (70-104); POTASSIUM 4.5 MMOL/L (3.5-5.1); SODIUM 142 MMOL/L (135-145); TOTAL CARBON DIOXIDE 22.5 MMOL/L (24-32); TOTAL PROTEIN 7.2 G/DL (6.4-8.2); eCRCL 59 ML/MIN; eGFR 75 ML/MIN
[2024-12-14 17:07] VITALS: BP 144/87; PULSE 88; RESP 16; O2SAT 94
== END 2024-12-14 17:32 | disposition home or self-care (01) ==
LOC: ER 14:25
DX: R91.8 Other nonspecific abnormal finding of lung field (principal); I11.0 Hypertensive heart disease with heart failure; I25.10 Atherosclerotic heart disease of native coronary artery without angina pectoris; I50.9 Heart failure, unspecified; J43.9 Emphysema, unspecified; Z79.82 Long term (current) use of aspirin
CPT/HCPCS: 36415; 80053; 85025; 99283